=== PATIENT | female | born 1955 | race Caucasian/White ===

== ENCOUNTER 2019-11-09 09:11 | Day surgery (SDC) | payer OTHER ==
[2019-10-29 13:53] VITALS: BMI 31.1
--- NOTE | 2019-11-09 08:00 | HP ---
[facility] - Chief Complaint Chief Complaint: right knee pain - Past Medical History Allergies/Adverse Reactions: Allergies Allergy/AdvReac Type Severity Reaction Status Date / Time pineapple Allergy Intermediate Itching Verified 10/29/19 13:06 No Known Drug Allergies Allergy Verified 10/29/19 13:06 - Current Medications Current Medications: Home Medications Medication Instructions Recorded Alendronate Sodium [Fosamax] 1 tab PO WEEKLY 10/29/19 Amlodipine Besylate [Norvasc -] 5 mg PO DAILY 10/29/19 Fluticasone/Salmeterol [Advair 1 each IH HS 10/29/19 250-50 Diskus] Indapamide 2.5 mg PO DAILY 10/29/19 Loratadine [Claritin] 10 mg PO DAILY 10/29/19 Metformin HCl [Glucophage] 500 mg PO DAILY 10/29/19 Naproxen 500 mg PO BID 10/29/19 Omeprazole 20 mg PO ASDIR PRN 10/29/19 Potassium Citrate [Potassium 10 meq PO HS 10/29/19 Citrate ER] Potassium Citrate [Potassium 20 meq PO DAILY 10/29/19 Citrate ER] Sertraline HCl [Zoloft -] 50 mg PO DAILY 10/29/19 Zolpidem Tartrate [Ambien] 5 mg PO HS 10/29/19 Satellite Physical Exam - Physical Examination General Appearance: Well Nourished, Well Developed, Alert & Oriented x3 ENT: Clear Lung: Normal air movement Extremities: Other (right knee- + swelling, + ttp medially, decr rom, nvi, xrays show grade 4 medial djd) Neurological: Intact, Alert, Oriented Satellite Impression/Plan - Impression/Plan Impression: right knee medial djd Operative Procedure: right medial roberto ukr Date to be Performed: 11/09/19
[2019-11-09] MEDS ORDERED: CEFAZOLIN 2 GM in DEXTROSE 5%-WATER - 50 ML IVPB ONE (10:46)
[2019-11-09] MEDS: CELECOXIB 200 MG CAPSULE PO ONE ×2 (11:00→15:59)
[2019-11-09] MEDS ORDERED: BUPIVACAINE HCL/PF 0.5% (5MG/ML) 10 ML VIAL ONE (11:04)
[2019-11-09] MEDS ORDERED: MIDAZOLAM HCL 2 MG/2 ML SINGLE DOSE VIAL ONE ×2 (11:05)
[2019-11-09] MEDS ORDERED: THROMBIN (RECOMBINANT) 5,000 UNIT VIAL TP ONE (11:54)
[2019-11-09] MEDS ORDERED: ceFAZolin SODIUM 1 GM VIAL ONE ×2 (11:54→12:38)
[2019-11-09] MEDS ORDERED: TRANEXAMIC ACID 1000 MG/10 ML VIAL IVPUSH ONE (12:15)
[2019-11-09] MEDS ORDERED: BUPIVICAINE 0.25%/MORPH PF/KETOROLAC - 51ML DISP.SYRINGE IA ONE ×3 (12:15→13:35)
[2019-11-09] MEDS ORDERED: LIDOCAINE HCL/PF 2% SDV 5ML VIAL ONE (12:33)
[2019-11-09] MEDS ORDERED: SODIUM CHLORIDE 0.9% P/F 10 ML VIAL IJ ONE (12:38)
[2019-11-09] MEDS ORDERED: TRANEXAMIC ACID 1000 MG/10 ML VIAL ONE ×2 (12:38→13:15)
[2019-11-09] MEDS ORDERED: ePHEDrine SULFATE 50 MG/1 ML AMPULE ONE (12:47)
[2019-11-09] MEDS ORDERED: PROPOFOL 20 ML ONE (13:11)
[2019-11-09] MEDS ORDERED: ONDANSETRON 4 MG/2 ML VIAL IVPUSH PRN ×2 (13:19→13:51)
[2019-11-09] MEDS ORDERED: THROMBIN (BOVINE) 5,000 UNIT VIAL TP ONE (13:30)
[2019-11-09] MEDS ORDERED: LACTATED RINGERS SOLUTION 1,000 ML IV SCH ×2 (13:30→14:00)
[2019-11-09] MEDS ORDERED: PATIENT'S OWN MEDICATION (NON-FORMULARY) (Omeprazole 20 MG) PO PRN (13:50)
[2019-11-09] MEDS ORDERED: MAG HYDROX/AL HYDROX/SIMETH 30 ML UNIT-DOSE CUP PO PRN (13:51)
--- NOTE | 2019-11-09 13:55 | OP ---
Operative Note - Note: Operative Date: 11/09/19 (josee) Pre-Operative Diagnosis: right knee medial djd Operation: right medial roberto ukr Post-Operative Diagnosis: Same as Pre-op Surgeon: Tyshawn Mark Bilingual Manager: En Mclain Anesthesia: General, Local Specimens Removed: bone fragments Estimated Blood Loss (mls): 100
[2019-11-09] MEDS ORDERED: oxyCODONE HCL 5 MG TABLET PO PRN (14:14)
[2019-11-09] MEDS ORDERED: PANTOPRAZOLE 20 MG TABLET PO PRN (14:15)
[2019-11-09] MEDS: ACETAMINOPHEN 1000 MG/100 ML VIAL (NON FORMULARY) IVPB ONE ×2 (14:35→15:59)
[2019-11-09] MEDS: INSULIN SLIDING SCALE (NOVOLOG) 1 VIAL SQ SCH ×2 (17:48→21:39)
[2019-11-09] MEDS: CEFAZOLIN 2 GM/D5W 2 GM/50 ML ML IVPB SCH (21:36)
[2019-11-09] MEDS: ACETAMINOPHEN 325 MG TABLET (FP) PO SCH (21:37)
[2019-11-09] MEDS: oxyCODONE HCL 10 MG SUSTAINED ACTING TABLET PO SCH (21:37)
[2019-11-09] MEDS: traMADol HCL 50 MG TABLET PO PRN (21:38)
[2019-11-09] MEDS: SENNOSIDES/DOCUSATE COMBO (SENNA PLUS) TABLET (UD) PO SCH (21:38)
[2019-11-09] MEDS ORDERED: PATIENT'S OWN MEDICATION (NON-FORMULARY) (Potassium Citrate [Potassium Citrate Er] 10 MEQ) PO SCH (22:00)
[2019-11-09] MEDS ORDERED: ZOLPIDEM TARTRATE 5 MG TABLET PO PRN (22:00)
[2019-11-10] MEDS: oxyCODONE HCL 5 MG TABLET PO PRN ×2 (00:37→03:59)
[2019-11-10] MEDS: ACETAMINOPHEN 325 MG TABLET (FP) PO SCH ×2 (02:52→08:51)
[2019-11-10] MEDS: CEFAZOLIN 2 GM/D5W 2 GM/50 ML ML IVPB SCH (04:00)
[2019-11-10 06:43] VITALS: TEMP 98.5
[2019-11-10] MEDS: INSULIN SLIDING SCALE (NOVOLOG) 1 VIAL SQ SCH ×2 (06:48→11:39)
[2019-11-10] MEDS ORDERED: metFORMIN HCL 500 MG TABLET (FP) PO SCH (07:00)
[2019-11-10] MEDS ORDERED: ASPIRIN 325 MG TABLET PO SCH (08:00)
[2019-11-10 09:11] VITALS: BP 126/68; PULSE 67
[2019-11-10] MEDS: SENNOSIDES/DOCUSATE COMBO (SENNA PLUS) TABLET (UD) PO SCH (09:14)
[2019-11-10] MEDS: oxyCODONE HCL 10 MG SUSTAINED ACTING TABLET PO SCH (09:14)
[2019-11-10] MEDS ORDERED: SERTRALINE HCL 50 MG TABLET (FP) PO SCH (10:00)
[2019-11-10] MEDS ORDERED: amLODIPine BESYLATE 5 MG TABLET (FP) PO SCH (10:00)
[2019-11-10] MEDS ORDERED: MULTIVITAMINS (DAILY MVI) TABLET (FP) PO SCH (10:00)
--- NOTE | 2019-11-10 11:07 | PN ---
Progress Note (short form) - Note Progress Note: Ortho Pt seen and examined s/p right medial roberto ukr pod #1 Selected Entries 11/10/19 09:08 Temperature 98.5 F Pulse Rate 67 Respiratory 17 Rate Blood Pressure 126/68 Dressing c/d/i, calf soft, nt rom 0-40, nvi a/p PT dvt ppx pain control d/c home today f/u in 1 week
--- NOTE | 2019-11-10 11:08 | DS ---
Physical Examination Vital Signs: Vital Signs Temperature 98.5 F 11/10/19 09:08 Pulse Rate 67 11/10/19 09:08 Respiratory Rate 17 11/10/19 09:08 Blood Pressure 126/68 11/10/19 09:08 O2 Sat by Pulse Oximetry (%) 94 L 11/10/19 09:08 Discharge Summary Problems reviewed: Yes Reason For Visit: OSTEOARTHRITIS Procedures: Principal: right medial roberto ukr Hospital Course: admitted for elective right medial roberto ukr, post-op per protocol, stable for d/c Condition: Good - Instructions Diet, Activity, Other Instructions: Post-op Instructions-Partial Knee Replacement Call the office for a follow-up appointment in 1 week - [phone] Aspirin 325mg daily for 6 weeks. Pain medication was sent into your pharmacy. Apply Graduated Compression Stockings (TEDs) to both lower extremities- remove daily for hygiene ONLY Apply Sequential Compression Device (SCDs) to both Lower extremities remove for PT and hygiene ONLY Apply cold packs to affected area for 15 minutes every 2 hours. Physical Therapist will come to your home for the first 5 days. You will be set up with outpatient PT at your first post-operative visit. Patient may ambulate as tolerated-encourage self care (at least every 2-3 hours while awake) with walker or cane Maintain Aquacel (waterproof) dressing to operative wound (will be removed by surgeon at first office visit) Shower with Aquacel dressing in place-if Aquacel integrity compromised, remove and apply dry sterile dressing and notify Orthopedist. DO NOT SHOWER unless Orthopedists approves without Aquacel dressing CONTACT THE OFFICE FOR ANY CHANGE IN YOUR CONDITION (for example-fever greater than 102 degrees, excessive bleeding from operative site, purulent drainage, severe swelling or pain) GO TO THE EMERGENCY ROOM IF THERE IS A MEDICAL EMERGENCY Knee Precautions: * Keep a rolled towel under affected heel while in bed or chair (to keep knee in extension) * Keep affected leg elevated except during mealtimes * DO NOT PLACE PILLOW UNDER AFFECTED KNEE * If you have any questions, please do not hesitate to call the office - [phone]. Referrals: Tyshawn Mark MD [Staff Physician] - Disposition: VNS/HOME HEALTH CARE - Home Medications Comprehensive Discharge Medication List: Ambulatory Orders Alendronate Sodium [Fosamax] 1 tab PO WEEKLY 10/29/19 Amlodipine Besylate [Norvasc -] 5 mg PO DAILY 10/29/19 Fluticasone/Salmeterol [Advair 250-50 Diskus] 1 each IH HS 10/29/19 Loratadine [Claritin] 10 mg PO DAILY 10/29/19 Metformin HCl [Glucophage] 500 mg PO DAILY 10/29/19 Naproxen 500 mg PO BID 10/29/19 Omeprazole 20 mg PO ASDIR PRN 10/29/19 Potassium Citrate [Potassium Citrate ER] 10 meq PO HS 10/29/19 Potassium Citrate [Potassium Citrate ER] 20 meq PO DAILY 10/29/19 Sertraline HCl [Zoloft -] 50 mg PO DAILY 10/29/19 Zolpidem Tartrate [Ambien] 5 mg PO HS 10/29/19 Aspirin [ASA -] 325 mg PO DAILY@0800 tablet 11/09/19 Oxycodone HCl/Acetaminophen [Percocet 5-325 mg Tablet] 1 - 2 tab PO Q6H #30 tab MDD 6 11/09/19
[2019-11-10] MEDS: traMADol HCL 50 MG TABLET PO PRN (11:37)
--- NOTE | 2019-11-10 12:23 | SPEC ---
DATE OF OPERATION: 11/09/2019 PREOPERATIVE DIAGNOSIS: Degenerative joint disease, right knee. POSTOPERATIVE DIAGNOSIS: Degenerative joint disease, right knee. PROCEDURE: Right medial unicompartmental knee replacement with robotic-assisted navigation (MAKOplasty) and patelloplasty. SURGICAL ATTENDING: Tyshawn Mark MD TEXTILE MACHINE OPERATOR: SUKHDEEP Perez ANESTHESIA: Regional and spinal. CLOSURE: Medial unicompartmental OSMANY components with a 3 femur, 2 tibia, and an 9 polyethylene; No. 1 Vicryl, fascia; 0 and 2-0, subcutaneous; 3-0 Monocryl subcuticular with skin glue; 4-0 undyed Vicryl for pin sites. ESTIMATED BLOOD LOSS: Negligible. COMPLICATIONS: None. CONDITION: To recovery in stable condition. DESCRIPTION OF OPERATIVE PROCEDURE: Patient was taken to the operating room on November 09, 2019. Spinal and regional anesthesia was administered by the anesthesiologist. IV Kefzol and TXA were administered prophylactically prior to the case. A well-padded pneumatic tourniquet was placed on the right proximal thigh. The right lower extremity was prepped and draped in the usual sterile fashion. A 6- to 8-cm longitudinal incision over the medial side of the patella from mid patella to the tibial tubercle was incised and was deepened using Bovie cautery. An arthrotomy was then made just medial to the patellar tendon and the patella. Subperiosteal dissection was done on the anteromedial proximal tibia all the way back to the MCL. Partial fat pad excision was performed, exposing the medial compartment. Checkpoint was malleable at both the femur and the tibia. Using 2 stab incisions in the femur 1 handbreadth above the patella on the femur and 2 stab incisions 1 handbreadth below the tibial tubercle on the tibia, 2 threaded pins were drilled in parallel fashion from anterior to posterior, going through the proximal cortex and engaging the 2nd but not through the 2nd cortex. To these threaded pins were fastened navigation rays, 1 on the femur and 1 on the tibia. The knee was then registered with the navigation device with the center of the rotation of the hip, medial and lateral malleoli, and multiple points both on the femur and on the tibia. Excellent registration of less than 0.5 mm was obtained on both to ensure adequate registration. The navigation device ensured us to "pop the bubbles" both on the femur and the tibia and that was performed and passed registration. The knee was then thoroughly inspected to remove all osteophytes both on the femur and the tibia. Also, osteophytes on the trochlea and on the surface of the patella were removed as well. The knee was then stressed with valgus stress at 0, 30, 60, 90, and 120 degrees of flexion. This propagated a looseness/tightness graft. The virtual positions of the components were then optimized to ensure an excellent graft. The tracking also was optimized by manipulating the virtual position to ensure that the femoral component articulated with the central portion of the tibial component. The robot was then brought into the field and was registered. The robot was used to bur the bone on both the femur and the tibia as to the specifications of the components. The trial components were then applied on both the femur and the tibia with an appropriate polyethylene insert. The knee was taken through a range of motion and found to have full extension, full flexion, with excellent stability. Stressing the graft revealed an excellent looseness/tightness graft with the trial components in place. The trial components were removed. The knee was thoroughly irrigated with a copious amount of antibiotic irrigation. The real components were then cemented in using modern generation cement techniques with antibiotic cement and pressurization. After the cement was hardened, the knee was thoroughly inspected to remove out all excess cement. The real polyethylene insert was then clipped into place. Range of motion and stability were again assessed to be as they were with the trials. At this time, the pins and the checkpoints were removed. The knee was again thoroughly irrigated. The arthrotomy was closed with No. 1 Vicryl, 0 and 2-0 subcutaneous, and 3-0 Monocryl subcuticular with skin glue for the skin, 4-0 undyed Vicryl for the pin sites. Sterile pressure dressing was placed over the knee. Patient awakened from anesthesia and transferred to recovery in stable condition. No complications. Estimated blood loss negligible. X-rays postoperatively revealed excellent position of the components. Caitlin [id number]
--- NOTE | 2019-11-10 14:09 | PN ---
Progress Note (short form) - Note Progress Note: Anesthesia post op note Pt POD #1 for right medial knee roberto under spinal plus pnb. Pt able to tolerate PT, c pain, aided by po pain meds. No complications 2/2 anesthesia
== END 2019-11-10 14:30 | disposition home health service (06) ==
LOC: FASU 09:11 → FM/S 16:32 → FASU 11-10 14:30
PROVIDERS: ATTEND Orthopaedic Surgery
PROC: 8E0YXBZ Computer Assisted Procedure of Lower Extremity (ICD-10-PCS; 2019-11-09)
PROC: 8E0Y0CZ Robotic Assisted Procedure of Lower Extremity, Open Approach (ICD-10-PCS; 2019-11-09)
PROC: 0SRC0L9 Replacement of Right Knee Joint with Medial Unicondylar Synthetic Substitute, Cemented, Open Approach (ICD-10-PCS; principal; 2019-11-09 12:56)
DX: M17.11 Unilateral primary osteoarthritis, right knee (principal)
CPT/HCPCS: 20985; 27446; C1776; S2900; 73560-TC-RT-FY; 82962; 94760; 97010-GP; 97116-GP; 97163-GP; J0131